=== PATIENT | female | born 1975 | race Hispanic/Latino ===

== ENCOUNTER 2019-01-11 12:28 | Emergency (ER) | payer OTHER ==
[2019-01-11] MEDS ORDERED: PROVENTIL IH ONE (12:40)
[2019-01-11] MEDS ORDERED: ATROVENT IH ONE (12:40)
[2019-01-11] MEDS ORDERED: DECADRON IV ONE (12:40)
--- NOTE | 2019-01-11 12:40 | Emergency Department Report ---
Blank Doc - Documentation Documentation: This is a 43-year-old female that presents with SOB. Stated has some tightness in her chest. Exam: diffuse wheezing/tightness This initial assessment/diagnostic orders/clinical plan/treatment(s) is/are subject to change based on patient's health status, clinical progression and re- assessment by fellow clinical providers in the ED. Further treatment and workup at subsequent clinical providers discretion. Patient/guardians urged not to elope from the ED as their condition may be serious if not clinically assessed and managed. Initial orders include: 1- Patient sent to MAIN ED for further evaluation and treatment 2- CXR 3- EKG 4- Labs 5- breathing treatment/steroids
[2019-01-11 13:02] LABS: Basophils # (Auto) 0.1 K/mm3 (0.0-0.1); Basophils % (Auto) 0.7 % (0.0-1.8); Eosinophils # (Auto) 0.1 K/mm3 (0.0-0.4); Eosinophils % (Auto) 0.9 % (0.0-4.3); Hematocrit 43.9 % (30.3-42.9); Hemoglobin 14.9 gm/dl (10.1-14.3); Lymphocytes # (Auto) 1.8 K/mm3 (1.2-5.4); Lymphocytes % (Auto) 12.8 % (13.4-35.0); Mean Corpuscular HGB Conc 34 % (30-34); Mean Corpuscular Volume 89 fl (79-97); Monocytes # (Auto) 0.4 K/mm3 (0.0-0.8); Platelet Count 345 K/mm3 (140-440); Red Blood Count 4.93 M/mm3 (3.65-5.03); Red Cell Distribution Width 14.7 % (13.2-15.2)
[2019-01-11 13:13] LABS: INR 0.8 (0.87-1.13)
[2019-01-11 13:36] LABS: BUN/Creatinine Ratio 16; Blood Urea Nitrogen 11 mg/dL (7-17); Calcium 9.5 mg/dL (8.4-10.2); Hemolysis Index 62
[2019-01-11] MEDS ORDERED: SOLU-Medrol IM ONE (13:40)
[2019-01-11] MEDS ORDERED: ROBITUSSIN AC PO ONE (13:47)
--- NOTE | 2019-01-11 14:06 | XRay Report ---
AP CHEST: HISTORY: Cough AP view of the chest demonstrates a normal mediastinal and cardiac contour with clear lungs and normal bony and soft tissue structures. IMPRESSION: Unremarkable AP chest.
--- NOTE | 2019-01-11 14:09 | Emergency Department Report ---
ED General Adult HPI - General Chief complaint: Dyspnea/Respdistress Stated complaint: NIURKA Time Seen by Provider: 01/11/19 12:38 Source: patient Mode of arrival: Wheelchair Limitations: No Limitations - History of Present Illness Initial comments: Patient presents to respond to complain of a cough and shortness of breath that started yesterday. Patient sensation difficult time catching her breath this morning due to her coughing. Patient denies tiago chest painwhen she coughs she has some chest pain but immediately goes away after cough. Patient has fever, normal pain, headache. Not sure of sick contacts. -: Sudden Severity scale (0 -10): 2 Quality: aching Consistency: intermittent Improves with: none Worsens with: none Associated Symptoms: denies other symptoms Treatments Prior to Arrival: none - Related Data Previous Rx's Medication Instructions Recorded Last Taken Type ALBUTEROL Inhaler (OR & NICU) 2 puff IH Q4HR PRN #1 inhalation 01/11/19 Unknown Rx [ProAir HFA Inhaler] Albuterol Sulfate [Albuterol 0.63% 0.63 mg IH Q4HR PRN #30 ml 01/11/19 Unknown Rx NEBS] Benzonatate [Tessalon Perles] 100 mg PO Q8HR PRN #20 capsule 01/11/19 Unknown Rx guaiFENesin/CODEINE [Robitussin AC] 5 ml PO Q12HR PRN #180 oral.liqd 01/11/19 Unknown Rx levoFLOXacin [Levaquin] 750 mg PO QDAY #5 tablet 01/11/19 Unknown Rx predniSONE [Deltasone] 20 mg PO DAILY #15 tablet 01/11/19 Unknown Rx Allergies Allergy/AdvReac Type Severity Reaction Status Date / Time every abx x rocephin and Allergy Anaphylaxis Uncoded 01/11/19 12:31 amoxicilli ED Review of Systems ROS: Stated complaint: NIURKA Other details as noted in HPI Constitutional: denies: chills, fever Eyes: denies: eye pain, eye discharge, vision change ENT: denies: ear pain, throat pain Respiratory: cough. denies: shortness of breath, wheezing Cardiovascular: denies: chest pain, palpitations Endocrine: no symptoms reported Gastrointestinal: denies: abdominal pain, nausea, diarrhea Genitourinary: denies: urgency, dysuria, discharge Musculoskeletal: denies: back pain, joint swelling, arthralgia Skin: denies: rash, lesions Neurological: denies: headache, weakness, paresthesias Psychiatric: denies: anxiety, depression Hematological/Lymphatic: denies: easy bleeding, easy bruising ED Past Medical Hx - Past Medical History Hx Psychiatric Treatment: Yes - Surgical History Hx Appendectomy: Yes Additional Surgical History: hyst - Social History Smoking Status: Current Every Day Smoker Substance Use Type: None - Medications Home Medications: Home Medications Medication Instructions Recorded Confirmed Last Taken Type ALBUTEROL Inhaler (OR & NICU) 2 puff IH Q4HR PRN #1 inhalation 01/11/19 Unknown Rx [ProAir HFA Inhaler] Albuterol Sulfate [Albuterol 0.63% 0.63 mg IH Q4HR PRN #30 ml 01/11/19 Unknown Rx NEBS] Benzonatate [Tessalon Perles] 100 mg PO Q8HR PRN #20 capsule 01/11/19 Unknown Rx guaiFENesin/CODEINE [Robitussin AC] 5 ml PO Q12HR PRN #180 oral.liqd 01/11/19 Unknown Rx levoFLOXacin [Levaquin] 750 mg PO QDAY #5 tablet 01/11/19 Unknown Rx predniSONE [Deltasone] 20 mg PO DAILY #15 tablet 01/11/19 Unknown Rx ED Physical Exam - General Limitations: No Limitations General appearance: alert, in no apparent distress - Head Head exam: Present: atraumatic, normocephalic - Eye Eye exam: Present: normal appearance - ENT ENT exam: Present: mucous membranes moist - Neck Neck exam: Present: normal inspection - Respiratory Respiratory exam: Present: normal lung sounds bilaterally, wheezes (and expiratory wheezing), rales. Absent: respiratory distress - Cardiovascular Cardiovascular Exam: Present: regular rate, normal rhythm. Absent: systolic murmur, diastolic murmur, rubs, gallop - GI/Abdominal GI/Abdominal exam: Present: soft, normal bowel sounds. Absent: distended, tenderness - Extremities Exam Extremities exam: Present: normal inspection - Back Exam Back exam: Present: normal inspection - Neurological Exam Neurological exam: Present: alert, oriented X3, CN II-XII intact. Absent: motor sensory deficit - Psychiatric Psychiatric exam: Present: normal affect, normal mood - Skin Skin exam: Present: warm, dry, intact, normal color. Absent: rash ED Course Vital Signs 01/11/19 01/11/19 01/11/19 12:38 12:41 13:12 Temperature 97.8 F Pulse Rate 99 H Pulse Rate [ 84 Anterior Throughout] Respiratory 20 Rate Respiratory 16 Rate [Anterior Throughout] Blood Pressure 99/74 O2 Sat by Pulse 88 93 Oximetry 01/11/19 01/11/19 13:19 14:04 Temperature Pulse Rate 83 Pulse Rate [ 99 H Anterior Throughout] Respiratory 22 Rate Respiratory 12 Rate [Anterior Throughout] Blood Pressure O2 Sat by Pulse 98 Oximetry ED Medical Decision Making - Lab Data Result diagrams: 01/11/19 12:50 01/11/19 12:50 Lab Results 01/11/19 01/11/19 01/11/19 Range/Units 12:50 12:50 12:50 WBC 13.9 H (4.5-11.0) K/mm3 RBC 4.93 (3.65-5.03) M/mm3 Hgb 14.9 H (10.1-14.3) gm/dl Hct 43.9 H (30.3-42.9) % MCV 89 (79-97) fl MCH 30 (28-32) pg MCHC 34 (30-34) % RDW 14.7 (13.2-15.2) % Plt Count 345 (140-440) K/mm3 Lymph % (Auto) 12.8 L (13.4-35.0) % Pitkin % (Auto) 3.0 (0.0-7.3) % Eos % (Auto) 0.9 (0.0-4.3) % Baso % (Auto) 0.7 (0.0-1.8) % Lymph # 1.8 (1.2-5.4) K/mm3 Pitkin # 0.4 (0.0-0.8) K/mm3 Eos # 0.1 (0.0-0.4) K/mm3 Baso # 0.1 (0.0-0.1) K/mm3 Seg Neutrophils % 82.6 H (40.0-70.0) % Seg Neutrophils # 11.5 H (1.8-7.7) K/mm3 PT 11.5 L (12.2-14.9) Sec. INR 0.80 L (0.87-1.13) APTT 28.0 (24.2-36.6) Sec. Sodium 142 (137-145) mmol/L Potassium 4.5 (3.6-5.0) mmol/L Chloride 104.5 (98-107) mmol/L Carbon Dioxide 24 (22-30) mmol/L Anion Gap 18 mmol/L BUN 11 (7-17) mg/dL Creatinine 0.7 (0.7-1.2) mg/dL Estimated GFR > 60 ml/min BUN/Creatinine Ratio 16 % Glucose 110 H (65-100) mg/dL Calcium 9.5 (8.4-10.2) mg/dL Total Creatine Kinase 91 (30-135) units/L CK-MB (CK-2) 4.0 (0.0-4.0) ng/mL CK-MB (CK-2) Rel Index 4.3 H (0-4) Troponin T < 0.010 (0.00-0.029) ng/mL - Radiology Data Radiology results: report reviewed - Medical Decision Making Patient states her breathing improved with the breathing treatment Critical care attestation.: If time is entered above; I have spent that time in minutes in the direct care of this critically ill patient, excluding procedure time. ED Disposition Clinical Impression: Acute bronchitis, Pneumonia Disposition: DC- TO HOME OR SELFCARE Is pt being admited?: No Does the pt Need Aspirin: No Condition: Stable Instructions: Acute Bronchitis (ED), Bacterial Pneumonia (ED) Additional Instructions: return if worse Referrals: [facility] [Other] - 3-5 Days TEREZA WALKER MD [Staff Physician] - 3-5 Days [facility] [Provider Group] - 3-5 Days [facility] [Provider Group] - 3-5 Days [facility] [Outside] - 3-5 Days Time of Disposition: 14:29
[2019-01-11 14:48] VITALS: BP 135/84
== END 2019-01-11 14:48 | disposition home or self-care (01) ==
LOC: ED 12:28
DX: J20.9 Acute bronchitis, unspecified (principal); J18.9 Pneumonia, unspecified organism; F17.200 Nicotine dependence, unspecified, uncomplicated; Z90.49 Acquired absence of other specified parts of digestive tract
CPT/HCPCS: 36415; 71045; 80048; 82550; 82553; 84484; 85025; 85610; 85730; 94640; 96372; 96374; 99284; J1100; J2930

== ENCOUNTER 2019-04-22 09:34 | Emergency (ER) | payer OTHER ==
[2019-04-22 09:47] VITALS: BP 115/71
[2019-04-22] MEDS ORDERED: DUONEB *Not for PRN Use IH ONE (10:23)
[2019-04-22] MEDS ORDERED: DECADRON IM ONE (10:24)
--- NOTE | 2019-04-22 10:35 | XRay Report ---
CHEST 2 VIEWS INDICATION / CLINICAL INFORMATION: sob. COMPARISON: None available. FINDINGS: SUPPORT DEVICES: None. HEART / MEDIASTINUM: No significant abnormality. LUNGS / PLEURA: No significant pulmonary or pleural abnormality. No pneumothorax. ADDITIONAL FINDINGS: No significant additional findings. IMPRESSION: 1. No acute findings. Signer Name: oTm Butler MD Signed: 04/22/2019 10:31 AM Workstation Name: [id number]
--- NOTE | 2019-04-22 10:37 | Emergency Department Report ---
Minor Respiratory - HPI Chief Complaint: Dyspnea/Respdistress Stated Complaint: SOB Time Seen by Provider: 04/22/19 10:14 Duration: 1 Day Pain Location: Chest Severity: moderate Minor Respiratory: Yes Able to Tolerate Fluids, Yes Cough (dry nonproductive), No Rhinorrhea, No Sore Throat, No Ear Pain, No Sick Contacts, No Hemoptysis, No Chest Pain, No Shortness of Breath, No Fever Other History: This is a 43-year-old tobacco cigarette user presents to the complaining of intermittent dry cough which led her to have his some difficulty in breathing this morning when she woke up. Patient states that 3-4 months ago she had pneumonia but was treated. Patient states that she is also been expressing some upper right-sided pain with nausea vomiting she was seen earlier spotting still she has gastritis. ED Review of Systems ROS: Stated complaint: SOB Other details as noted in HPI Comment: All other systems reviewed and negative ED Past Medical Hx - Past Medical History Hx Psychiatric Treatment: Yes - Surgical History Hx Appendectomy: Yes Additional Surgical History: hyst - Social History Smoking Status: Current Every Day Smoker Substance Use Type: None - Medications Home Medications: Home Medications Medication Instructions Recorded Confirmed Last Taken Type Albuterol Sulfate [Albuterol 0.63% 0.63 mg IH Q4HR PRN #30 ml 01/11/19 Unknown Rx NEBS] guaiFENesin/CODEINE [Robitussin AC] 5 ml PO Q12HR PRN #180 oral.liqd 01/11/19 Unknown Rx levoFLOXacin [Levaquin] 750 mg PO QDAY #5 tablet 01/11/19 Unknown Rx predniSONE [Deltasone] 20 mg PO DAILY #15 tablet 01/11/19 Unknown Rx ALBUTEROL Inhaler (OR & NICU) 2 puff IH Q4HR PRN #1 inhalation 04/22/19 Unknown Rx [ProAir HFA Inhaler] Benzonatate [Tessalon Perles] 100 mg PO Q8HR PRN #20 capsule 04/22/19 Unknown Rx Dicyclomine [Bentyl] 10 mg PO TID #20 capsule 04/22/19 Unknown Rx Ondansetron (Nf) [Zofran TAB] 8 mg PO Q8HR PRN #20 tablet 04/22/19 Unknown Rx Minor Respiratory Exam - Exam General: Vital signs noted. No distress. Alert and acting appropriately. HEENT: Yes Moist Mucous Membranes, No Pharyngeal Erythema, No Pharyngeal Exudates, No Rhinorrhea, No Conjuctival Injection, No Frontal Tenderness, No Maxillary Tenderness Ear: Neither TM Bulge, Neither TM Erythema, Neither EAC Pain, Neither EAC Discharge Neck: Yes Supple, No Adenopathy Lungs: Yes Good Air Exchange, Yes Wheezes (note wheezing bilaterally), Yes Cough, No Ronchi, No Stridor, No Labored Respirations, No Retractions, No Use of Accessory Muscles, No Other Abnormal Lung Sounds Heart: Yes Regular, No Murmur Abdomen: Yes Normal Bowel Sounds, No Tenderness, No Peritoneal Signs Skin: No Rash, No Edema Neurologic: Alert and oriented, no deficits. Musculoskeletal: Unremarkable. ED Course Vital Signs 04/22/19 09:45 Temperature 97.6 F Pulse Rate 103 H Respiratory 18 Rate Blood Pressure 115/71 O2 Sat by Pulse 93 Oximetry ED Medical Decision Making - Radiology Data Radiology results: report reviewed, image reviewed COMPARISON: None available. FINDINGS: SUPPORT DEVICES: None. HEART / MEDIASTINUM: No significant abnormality. LUNGS / PLEURA: No significant pulmonary or pleural abnormality. No pneumothorax. ADDITIONAL FINDINGS: No significant additional findings. IMPRESSION: 1. No acute findings. Signer Name: Tom Butler MD Signed: 04/22/2019 10:31 AM Workstation Name: [id number] Transcribed By: EVAN Dictated By: Tom Butler MD Electronically Authenticated By: Tom Butler MD Signed Date/Time: 04/22/19 1031 - Medical Decision Making This is a 43-year-old female presents to ED complaining of difficulty breathing that started this morning when she woke up. Patient states that he started experiencing a difficulty in breathing this morning after several bouts of intermittent coughing. Patient states that she is chronic smoker. She denies any history of asthma or bronchitis. Patient received Decadron and breathing treatment in the ED. She reports feeling better afterwards. Vital signs are normal patient is in no acute or respiratory distress. X-ray shows no acute pulmonary disease Critical care attestation.: If time is entered above; I have spent that time in minutes in the direct care of this critically ill patient, excluding procedure time. ED Disposition Clinical Impression: Bronchitis Disposition: DC-01 TO HOME OR SELFCARE Is pt being admited?: No Does the pt Need Aspirin: No Condition: Stable Instructions: Chronic Bronchitis (ED) Additional Instructions: Make sure to follow up with the primary care physician as discussed. Most likely is suffering from COPD. Smoking cessation is important Your x-ray shows no acute pulmonary infection at the moment. Take all your medications as you've been prescribed. If you have any worsening symptoms or develop new symptoms please return to ED immediately. Prescriptions: Dicyclomine [Bentyl] 10 mg PO TID #20 capsule ALBUTEROL Inhaler (OR & NICU) [ProAir HFA Inhaler] 2 puff IH Q4HR PRN #1 inhalation PRN Reason: Shortness Of Breath Benzonatate [Tessalon Perles] 100 mg PO Q8HR PRN #20 capsule PRN Reason: Cough Ondansetron (Nf) [Zofran TAB] 8 mg PO Q8HR PRN #20 tablet PRN Reason: Nausea Referrals: THAO RIGGS MD [Primary Care Provider] - 3-[address] [facility] [Provider Group] - 3-5 Days [facility] [Outside] - 3-5 Days [facility] [Outside] - 3-5 Days Forms: Accompanied Note, Work/School Release Form(ED) Time of Disposition: 11:11
== END 2019-04-22 11:25 | disposition home or self-care (01) ==
LOC: ED 09:34
DX: J40 Bronchitis, not specified as acute or chronic (principal); R11.2 Nausea with vomiting, unspecified; F17.200 Nicotine dependence, unspecified, uncomplicated; Z90.89 Acquired absence of other organs; Z90.710 Acquired absence of both cervix and uterus; Z88.8 Allergy status to other drugs, medicaments and biological substances; Z88.1 Allergy status to other antibiotic agents
CPT/HCPCS: 71046; 94644; 96372; 99283; J1100

== ENCOUNTER 2019-09-17 15:48 | Inpatient (IN) | payer MEDICAID ==
[2019-09-17 18:04] LABS: Bilirubin,Urine SM (Negative); Blood,Urine NEG (Negative); Color,Urine Amber (Yellow); Mucus,Urine 3+ /HPF
[2019-09-17 18:13] LABS: Ictotest,Urine Negative (Negative)
[2019-09-17 19:15] LABS: Hematocrit 42.4 % (30.3-42.9); Hemoglobin 14.5 gm/dl (10.1-14.3); Mean Corpuscular HGB Conc 34 % (30-34); Mean Corpuscular Volume 89 fl (79-97); Platelet Count 366 K/mm3 (140-440); Red Blood Count 4.77 M/mm3 (3.65-5.03); Red Cell Distribution Width 13.6 % (13.2-15.2)
--- NOTE | 2019-09-17 19:21 | Emergency Department Report ---
ED Abdominal Pain HPI - General Chief Complaint: Abdominal Pain Stated Complaint: POST OP/ABD PAIN/(R) SHOULDER PAIN Time Seen by Provider: 09/17/19 19:18 Source: patient Mode of arrival: Stretcher Limitations: No Limitations - History of Present Illness Initial Comments: Patient is a 44-year-old female that presents emergency room with complaints of abdominal pain. Patient states her symptoms are worsening. Patient states her abdominal pain as a 10 out of 10. Patient states she is having epigastric pain, right lower quadrant pain. Patient states the pain is radiating to her back into her shoulder. Patient states she had a gallbladder surgery 4 days ago. Patient states that her pain medication, hydrocodone is not working. MD Complaint: abdominal pain -: Sudden Location: RLQ, epigastric Radiation: other Migration to: no migration Severity: severe Severity scale (0 -10): 10 Quality: stabbing Consistency: constant Improves With: rest Worsens With: movement Context: recent surgery/procedure Associated Symptoms: denies: nausea, vomiting, diarrhea, fever, chills, constipation, dysuria, hematemesis, hematochezia, melena, hematuria, anorexia, syncope - Related Data Allergies Allergy/AdvReac Type Severity Reaction Status Date / Time amoxicillin Allergy Anaphylaxis Verified 09/17/19 19:59 azithromycin [From Zithromax] Allergy Unknown Verified 09/17/19 16:06 clindamycin Allergy Unknown Verified 09/17/19 16:06 doxycycline [From Vibramycin] Allergy Rash Verified 09/17/19 16:06 gabapentin Allergy Rash Verified 09/17/19 16:06 Iodinated Contrast Media Allergy Anaphylaxis Verified 09/17/19 20:54 latex Allergy Hives Verified 09/17/19 16:06 Penicillins Allergy Anaphylaxis Verified 09/17/19 19:59 Sulfa (Sulfonamide Allergy Hives Verified 09/17/19 16:06 Antibiotics) tramadol Allergy Rash Verified 09/17/19 16:06 ED Review of Systems ROS: Stated complaint: POST OP/ABD PAIN/(R) SHOULDER PAIN Other details as noted in HPI Constitutional: denies: chills, fever Eyes: denies: eye pain, eye discharge, vision change ENT: denies: ear pain, throat pain Respiratory: denies: cough, shortness of breath, wheezing Cardiovascular: denies: chest pain, palpitations Endocrine: no symptoms reported Gastrointestinal: abdominal pain, nausea. denies: vomiting, diarrhea Genitourinary: denies: urgency, dysuria, discharge Musculoskeletal: denies: back pain, joint swelling, arthralgia Skin: denies: rash, lesions Neurological: denies: headache, weakness, paresthesias Psychiatric: denies: anxiety, depression Hematological/Lymphatic: denies: easy bleeding, easy bruising ED Past Medical Hx - Past Medical History Previous Medical History?: Yes Hx Psychiatric Treatment: Yes (depression, anxiety) - Surgical History Past Surgical History?: Yes Hx Cholecystectomy: Yes Hx Appendectomy: Yes Additional Surgical History: hyst - Family History Family history: no significant - Social History Smoking Status: Current Every Day Smoker Substance Use Type: None ED Physical Exam - General Limitations: No Limitations General appearance: alert, in no apparent distress - Head Head exam: Present: atraumatic, normocephalic - Eye Eye exam: Present: normal appearance - ENT ENT exam: Present: mucous membranes moist - Neck Neck exam: Present: normal inspection - Respiratory Respiratory exam: Present: normal lung sounds bilaterally. Absent: respiratory distress - Cardiovascular Cardiovascular Exam: Present: regular rate, normal rhythm. Absent: systolic murmur, diastolic murmur, rubs, gallop - GI/Abdominal GI/Abdominal exam: Present: soft, tenderness (generalized tenderness.), normal bowel sounds - Rectal Rectal exam: Present: deferred - Extremities Exam Extremities exam: Present: normal inspection - Back Exam Back exam: Present: normal inspection - Neurological Exam Neurological exam: Present: alert, oriented X3 - Psychiatric Psychiatric exam: Present: normal affect, normal mood - Skin Skin exam: Present: warm, dry, normal color, other (laparoscopic surgical sites noted on abdomen.). Absent: rash ED Course Vital Signs 09/17/19 09/17/19 09/17/19 16:50 19:30 19:57 Temperature 98.2 F Pulse Rate 79 85 Respiratory 16 10 L 22 Rate Blood Pressure 131/83 Blood Pressure 111/71 [Left] O2 Sat by Pulse 94 93 Oximetry 09/17/19 09/17/19 09/17/19 20:00 20:30 21:00 Temperature Pulse Rate 92 H 89 94 H Respiratory 12 20 22 Rate Blood Pressure 131/83 136/80 124/63 Blood Pressure [Left] O2 Sat by Pulse 94 94 91 Oximetry 09/17/19 09/17/19 09/17/19 21:16 21:30 21:46 Temperature Pulse Rate 94 H 93 H 99 H Respiratory 18 18 12 Rate Blood Pressure 124/63 123/66 136/80 Blood Pressure [Left] O2 Sat by Pulse 92 91 93 Oximetry 09/17/19 22:00 Temperature Pulse Rate 115 H Respiratory 15 Rate Blood Pressure 136/80 Blood Pressure [Left] O2 Sat by Pulse 94 Oximetry - Reevaluation(s) Reevaluation #1: Patient is still complaining of ear pain. Patient states that she milligrams of Dilaudid did not even move her pain. Patient will be given another dose dose o f Dilaudid. 09/17/19 20:49 Reevaluation #2: I discussed all results patient. Patient states her pain has not improved at all. Patient given 3 mg of Dilaudid. I discussed transfer patient to patient agrees to transfer. I will try to contact the patient's surgeon at [facility] 09/17/19 21:50 Reevaluation #3: Patient is still complaining of pain. Patient is also complaining of anxiety. Patient will be given Ativan and fentanyl 09/17/19 22:26 - Consultations Consultation #1: I discussed case with Dr. Hough. Dr. Hough recommends transferring back to where she had the surgery. 09/17/19 21:48 I discussed the case again with Dr. Hough and Dr. Hough has accepted the patient to stay here once a GI consult done. 09/17/19 22:36 Consultation #2: Discussed case with the patient's surgeon, Dr. Ever Warren and he states that the hospital where he did the surgery does not have ERCP and so he cannot accept the transfer back. 09/17/19 22:32 Consultation #3: Hospitalist consult for admission. Hospitalist admit patient.. 09/17/19 22:37 ED Medical Decision Making - Lab Data Result diagrams: 09/17/19 17:52 09/17/19 17:52 - Radiology Data Radiology results: report reviewed CT ABDOMEN AND PELVIS WITHOUT CONTRAST INDICATION / CLINICAL INFORMATION: abd pain. Status post laparoscopic cholecystectomy 4 days ago. TECHNIQUE: Axial CT images were obtained through the abdomen and pelvis without IV contrast. All CT scans at this location are performed using CT dose reduction for ALARA by means of automated exposure control. COMPARISON: None available. FINDINGS: LOWER CHEST: No significant abnormality. LIVER: No significant abnormality. GALLBLADDER: Surgically absent. BILE DUCTS: No significant abnormality. PANCREAS: No significant abnormality. SPLEEN: No significant abnormality. ADRENALS: No significant abnormality. RIGHT KIDNEY and URETER: No significant abnormality. LEFT KIDNEY and URETER: Small nonobstructing stone in the lower pole. No ureteral stone or hydronephrosis. STOMACH and SMALL BOWEL: No significant abnormality. COLON: No significant abnormality. APPENDIX: Surgically absent. PERITONEUM: Small amount of free fluid around the liver tracking into the right paracolic gutter into the pelvis. This fluid has slightly increased density in the pelvis. Several tiny bubbles of gas along the anterior abdominal wall likely related to recent cholecystectomy. No abscess. LYMPH NODES: No significant adenopathy. AORTA and ARTERIES: No significant abnormality. IVC and VEINS: No significant abnormality. URINARY BLADDER: No significant abnormality. REPRODUCTIVE ORGANS: No significant abnormality. ADDITIONAL FINDINGS: None. SKELETAL SYSTEM: No significant abnormality. IMPRESSION: 1. Small amount of free fluid around the liver and in the pelvis. In the setting of recent cholecystectomy, possibility of bile leak should be considered. Clinical and laboratory correlation is recommended. - Medical Decision Making He is a 44-year-old female that presents emergency room with severe abdominal pa in. Patient had a CT done which shows a bile leak. Patient admitted to the hospitalist service. Gen. surgery and GI consulted. I try to transfer the patient back to her surgeon of record but the facility where the surgeon [facility] does not have ERCP or weighs of taking care of this problem, so the patient will stay here. Labs unremarkable except for elevated WBC and the patient given prophylactic antibiotics. Patient given multiple doses of pain medication patient has intractable pain. - Differential Diagnosis intractable pain, abdominal pain, surgical complication. Critical Care Time: Yes Critical care time in (mins) excluding proc time.: 55 Critical care attestation.: If time is entered above; I have spent that time in minutes in the direct care of this critically ill patient, excluding procedure time. Critical Care Time: 55 minutes ED Disposition Clinical Impression: Bile leak, postoperative, Intractable pain Abdominal pain Qualifiers: Abdominal location: upper abdomen, unspecified Qualified Code(s): R10.10 - Upper abdominal pain, unspecified Disposition: 09 OP ADMIT IP TO THIS HOSP Is pt being admited?: Yes Does the pt Need Aspirin: No Condition: Critical Time of Disposition: 22:34
[2019-09-17 19:41] LABS: Alanine Aminotransferase 76 units/L (7-56); Albumin 4.2 g/dL (3.9-5); BUN/Creatinine Ratio 34; Blood Urea Nitrogen 24 mg/dL (7-17); Calcium 9.8 mg/dL (8.4-10.2); Hemolysis Index 12
[2019-09-17] MEDS ORDERED: PIPERACILLIN/TAZOBACTAM 3.375 3.375 GM/50 ML BAG IV ONE (19:45)
[2019-09-17] MEDS ORDERED: SODIUM CHLORIDE 0.9% 1000 ML 1,000 ML IV ONE (19:45)
[2019-09-17] MEDS ORDERED: HYDROmorphone 2 MG/1 ML INJ IV ONE ×3 (19:45→21:49)
[2019-09-17 20:05] LABS: HCG Qualitative,Urine Negative (Negative)
--- NOTE | 2019-09-17 21:30 | Cat Scan Report ---
CT ABDOMEN AND PELVIS WITHOUT CONTRAST INDICATION / CLINICAL INFORMATION: abd pain. Status post laparoscopic cholecystectomy 4 days ago. TECHNIQUE: Axial CT images were obtained through the abdomen and pelvis without IV contrast. All CT scans at [facility] location are performed using CT dose reduction for ALARA by means of automated exposure control. COMPARISON: None available. FINDINGS: LOWER CHEST: No significant abnormality. LIVER: No significant abnormality. GALLBLADDER: Surgically absent. BILE DUCTS: No significant abnormality. PANCREAS: No significant abnormality. SPLEEN: No significant abnormality. ADRENALS: No significant abnormality. RIGHT KIDNEY and URETER: No significant abnormality. LEFT KIDNEY and URETER: Small nonobstructing stone in the lower pole. No ureteral stone or hydronephr osis. STOMACH and SMALL BOWEL: No significant abnormality. COLON: No significant abnormality. APPENDIX: Surgically absent. PERITONEUM: Small amount of free fluid around the liver tracking into the right paracolic gutter into the pelvis. This fluid has slightly increased density in the pelvis. Several tiny bubbles of gas mary ng the anterior abdominal wall likely related to recent cholecystectomy. No abscess. LYMPH NODES: No significant adenopathy. AORTA and ARTERIES: No significant abnormality. IVC and VEINS: No significant abnormality. URINARY BLADDER: No significant abnormality. REPRODUCTIVE ORGANS: No significant abnormality. ADDITIONAL FINDINGS: None. SKELETAL SYSTEM: No significant abnormality. IMPRESSION: 1. Small amount of free fluid around the liver and in the pelvis. In the setting of recent cholecyste ctomy, possibility of bile leak should be considered. Clinical and laboratory correlation is recommen ded. Signer Name: Nathan Anders MD Signed: 09/17/2019 9:26 PM Workstation Name: [email or web address]
[2019-09-17 21:33] LABS: Basophils % (Manual) 0 % (0.0-1.8); Eosinophils % (Manual) 0 % (0.0-4.3); Total Cells Counted 100
[2019-09-17 21:34] LABS: Large Platelets 1+; Platelet Estimate Consistent w Auto; RBC Morphology Normal
[2019-09-17] MEDS ORDERED: LORazepam 2 MG/ML VIAL IV ONE (22:25)
[2019-09-17] MEDS ORDERED: fentaNYL 100 MCG/2 ML INJ IV ONE (22:26)
[2019-09-18] MEDS ORDERED: ONDANSETRON 4 MG/2 ML INJ IV PRN (01:10)
[2019-09-18] MEDS ORDERED: ACETAMINOPHEN 325 MG TAB PO PRN (01:10)
[2019-09-18] MEDS: SODIUM CHLORIDE 0.9% 1000 ML 1,000 ML IV SCH ×2 (02:07→18:44)
[2019-09-18] MEDS: MORPHINE 2 MG/1 ML INJ IV PRN ×4 (02:07→15:45)
--- NOTE | 2019-09-18 03:01 | History and Physical Report ---
History of Present Illness Date of examination: 09/18/19 Date of admission: 09/17/19 23:53 Chief complaint: Abdominal pain History of present illness: 44-year-old female presenting to the emergency room today complaining of abdominal pain which has been ongoing for about 4 days. She has significant history of laparoscopic cholecystectomy about a week ago at [facility] but she started having abdominal pain few days after the procedure. She has had decreased oral intake but denies any vomiting denies any diarrhea. He denies any chest pain or shortness of breath and denies any fever or chills abdominal pain is said to be generalized and is made worse by movements. Upon evaluation here in the emergency room CT scan scan indicates bile leakage. General surgery and hog driver has been consulted. Attempts were made by the ER physician to transfer patient to where she had a surgery however the facility cannot do ERCP. Decision was made to keep patient in this facility for further possible intervention. Past History Past Medical History: other (Depression and anxiety) Past Surgical History: appendectomy, cholecystectomy, Other (Left oophorectomy) Social history: smoking (Current everyday smoker) Family history: CAD (Father had CT in the past), hypertension (History of hypertension in father) Medications and Allergies Allergies Allergy/AdvReac Type Severity Reaction Status Date / Time amoxicillin Allergy Anaphylaxis Verified 09/17/19 19:59 azithromycin [From Zithromax] Allergy Unknown Verified 09/17/19 16:06 clindamycin Allergy Unknown Verified 09/17/19 16:06 doxycycline [From Vibramycin] Allergy Rash Verified 09/17/19 16:06 gabapentin Allergy Rash Verified 09/17/19 16:06 Iodinated Contrast Media Allergy Anaphylaxis Verified 09/17/19 20:54 latex Allergy Hives Verified 09/17/19 16:06 Penicillins Allergy Anaphylaxis Verified 09/17/19 19:59 Sulfa (Sulfonamide Allergy Hives Verified 09/17/19 16:06 Antibiotics) tramadol Allergy Rash Verified 09/17/19 16:06 Home Medications Medication Instructions Recorded Confirmed Last Taken Type Ambien 10 mg PO HS 09/18/19 09/18/19 Unknown History Cymbalta 30 mg PO DAILY 09/18/19 09/18/19 Unknown History KlonoPIN 2 mg PO QHS 09/18/19 09/18/19 Unknown History Vistaril 100 mg PO DAILY 09/18/19 09/18/19 Unknown History Active Meds: Active Medications Acetaminophen (Tylenol) 650 mg PO Q4H PRN PRN Reason: Pain MILD(1-3)/Fever >100.5/SCHMITT Sodium Chloride (Nacl 0.9% 1000 Ml) 1,000 mls @ 125 mls/hr IV DIRECT MIGUEL Last Admin: 09/18/19 02:07 Dose: 125 mls/hr Documented by: Levofloxacin/Dextrose (Levaquin 750mg/150ml) 750 mg in 150 mls @ 100 mls/hr IV Q24HR MIGUEL; Protocol Morphine Sulfate (Morphine) 2 mg IV Q4H PRN PRN Reason: Pain, Moderate (4-6) Last Admin: 09/18/19 02:07 Dose: 2 mg Documented by: Ondansetron HCl (Zofran) 4 mg IV Q8H PRN PRN Reason: Nausea And Vomiting Sodium Chloride (Sodium Chloride Flush Syringe 10 Ml) 10 ml IV BID MIGUEL Sodium Chloride (Sodium Chloride Flush Syringe 10 Ml) 10 ml IV PRN PRN PRN Reason: LINE FLUSH Review of Systems Gastrointestinal: abdominal pain Exam - Constitutional Vitals: Temp Pulse Resp BP Pulse Ox 98.8 F 101 H 18 121/93 90 09/18/19 02:07 09/18/19 02:07 09/18/19 02:07 09/18/19 02:07 09/18/19 02:07 General appearance: Present: no acute distress, mild distress (Secondary to pa in) - EENT Eyes: Present: PERRL, EOM intact ENT: hearing intact, clear oral mucosa, dentition normal - Neck Neck: Present: supple, normal ROM. Absent: enlarged thyroid - Respiratory Respiratory effort: normal Respiratory: bilateral: CTA - Cardiovascular Rhythm: regular Heart Sounds: Present: S1 & S2 - Extremities Extremities: no ischemia, pulses intact, No edema Peripheral Pulses: within normal limits - Abdominal General gastrointestinal: Present: soft, tender, non-distended, normal bowel sounds Localized gastrointestinal: guarding: diffuse - Integumentary Integumentary: Present: clear, warm, dry - Musculoskeletal Musculoskeletal: strength equal bilaterally - Psychiatric Psychiatric: appropriate mood/affect, intact judgment & insight, cooperative - Neurologic Neurologic: CNII-XII intact Results - Labs CBC & Chem 7: 09/17/19 17:52 09/17/19 17:52 Labs: Abnormal lab results 09/17/19 09/17/19 09/17/19 Range/Units 17:52 17:52 17:55 WBC 18.7 H (4.5-11.0) K/mm3 Hgb 14.5 H (10.1-14.3) gm/dl Seg Neuts % (Manual) 83.0 H (40.0-70.0) % Seg Neutrophils # Man 15.5 H (1.8-7.7) K/mm3 Chloride 95.8 L (98-107) mmol/L BUN 24 H (7-17) mg/dL Glucose 110 H (65-100) mg/dL ALT 76 H (7-56) units/L Alkaline Phosphatase 164 H (35-129) units/L Ur Specific [place] 1.032 H (1.003-1.030) Assessment and Plan - Patient Problems (1) Abdominal pain Current Visit: Yes Status: Acute Qualifiers: Abdominal location: upper abdomen, unspecified Qualified Code(s): R10.10 - Upper abdominal pain, unspecified Plan to address problem: Patient is status post laparoscopic cholecystectomy. Pain has been intractable. Patient placed on analgesic medication. (2) Bile leak, postoperative Current Visit: Yes Status: Acute Plan to address problem: Gastroenterology and general surgery has been consulted for further evaluation and recommendation. (3) Leukocytosis Current Visit: Yes Status: Acute Plan to address problem: Patient placed on empiric IV antibiotics. Will monitor CBC. (4) DVT prophylaxis Current Visit: Yes Status: Acute Plan to address problem: Patient placed on sequential compression device. (5) Full code status Current Visit: Yes Status: Acute
[2019-09-18] MEDS ORDERED: PANTOPRAZOLE 40 MG INJ IV ONE (06:15)
[2019-09-18] MEDS ORDERED: NON-FORMULARY EACH (Cymbalta 30 MG) PO SCH (10:00)
[2019-09-18] MEDS ORDERED: VISTARIL PO SCH (10:00)
--- NOTE | 2019-09-18 10:00 | Gastroenterology Consultation ---
History of Present Illness - Reason for Consult Consult date: 09/18/19 abd pain, bile leak Requesting physician: PARAS CHAO III - History of Present Illness Patient is a 44 y/o female with PMH of depression/anxiety who presented to ED with c/o abdominal pain x 4 days s/p laparoscopic cholecystectomy ~1 week ago at [facility]. Upon admission, abd CT showed a possible bile leak to which GI has been consulted. Patient is previously known to our service and is followed by Dr. Holloway with undergoing an EGD on 07/26/19 for postprandial abd pain/bloating prior to undergoing CCY for biliary dyskinesia (previous HIDA with EF of 14%) that showed small hiatal hernia, mild distal esophagitis, and gastritis with erosions (bx negative for H pylori). This morning patient was resting in bed w/o acute distress but noted to be anxious. She reports continued right sided abd pain that began post cholecystectomy and has progressively became worse. Denies fever, CP, SOB, vomiting, or signs of bleeding. No hx or Fhx of liver disease or substance abuse. Past History Past Medical History: other (Depression and anxiety) Past Surgical History: appendectomy, cholecystectomy, Other (Left oophorectomy) Social history: smoking (Current everyday smoker) Family history: CAD (Father had MO in the past), hypertension (History of hypertension in father) Medications and Allergies Allergies Allergy/AdvReac Type Severity Reaction Status Date / Time amoxicillin Allergy Anaphylaxis Verified 09/17/19 19:59 azithromycin [From Zithromax] Allergy Unknown Verified 09/17/19 16:06 clindamycin Allergy Unknown Verified 09/17/19 16:06 doxycycline [From Vibramycin] Allergy Rash Verified 09/17/19 16:06 gabapentin Allergy Rash Verified 09/17/19 16:06 Iodinated Contrast Media Allergy Anaphylaxis Verified 09/17/19 20:54 latex Allergy Hives Verified 09/17/19 16:06 Penicillins Allergy Anaphylaxis Verified 09/17/19 19:59 Sulfa (Sulfonamide Allergy Hives Verified 09/17/19 16:06 Antibiotics) tramadol Allergy Rash Verified 09/17/19 16:06 Home Medications Medication Instructions Recorded Confirmed Last Taken Type Ambien 10 mg PO HS 09/18/19 09/18/19 Unknown History Cymbalta 30 mg PO DAILY 09/18/19 09/18/19 Unknown History KlonoPIN 2 mg PO QHS 09/18/19 09/18/19 Unknown History Vistaril 100 mg PO DAILY 09/18/19 09/18/19 Unknown History Active Meds: Active Medications Acetaminophen (Tylenol) 650 mg PO Q4H PRN PRN Reason: Pain MILD(1-3)/Fever >100.5/SCHMITT Clonazepam (Klonopin) 2 mg PO QHS [facility] Duloxetine HCl (Cymbalta) 30 mg PO QDAY [facility] Hydroxyzine Pamoate (Vistaril) 100 mg PO DAILY [facility] Sodium Chloride (Nacl 0.9% 1000 Ml) 1,000 mls @ 125 mls/hr IV DIRECT MIGUEL Last Admin: 09/18/19 02:07 Dose: 125 mls/hr Documented by: Levofloxacin/Dextrose (Levaquin 750mg/150ml) 750 mg in 150 mls @ 100 mls/hr IV Q24HR [facility]; Protocol Morphine Sulfate (Morphine) 2 mg IV Q4H PRN PRN Reason: Pain, Moderate (4-6) Last Admin: 09/18/19 06:20 Dose: 2 mg Documented by: Ondansetron HCl (Zofran) 4 mg IV Q8H PRN PRN Reason: Nausea And Vomiting Last Admin: 09/18/19 03:16 Dose: 4 mg Documented by: Sodium Chloride (Sodium Chloride Flush Syringe 10 Ml) 10 ml IV BID MIGUEL Sodium Chloride (Sodium Chloride Flush Syringe 10 Ml) 10 ml IV PRN PRN PRN Reason: LINE FLUSH Zolpidem Tartrate (Ambien) 10 mg PO QHS [facility] medications reviewed/updated as required Review of Systems - Review of Systems All systems: negative Gastrointestinal: abdominal pain (right sided) Exam - Constitutional Vital Signs: Temp Pulse Resp BP Pulse Ox 98.9 F 100 H 18 115/70 90 09/18/19 06:10 09/18/19 06:10 09/18/19 06:20 09/18/19 06:10 09/18/19 06:10 General appearance: no acute distress, other (anxious) - EENT Eyes: PERRL, EOM intact ENT: hearing intact - Respiratory Respiratory effort: normal Respiratory: bilateral: CTA - Cardiovascular Rhythm: other (tachycardia) - Gastrointestinal General gastrointestinal: Present: soft, tender, non-distended, normal bowel sounds - Integumentary Integumentary: Present: warm, dry - Neurologic Neurological: alert and oriented x3 - Labs CBC & Chem 7: 09/17/19 17:52 09/17/19 17:52 Lab Results: Laboratory Results - last 24 hr 09/17/19 09/17/19 09/17/19 17:52 17:52 17:55 WBC 18.7 H RBC 4.77 Hgb 14.5 H Hct 42.4 MCV 89 MCH 31 MCHC 34 RDW 13.6 Plt Count 366 [place] % (Auto) Credit Correspondence Clerk Add Manual Diff Complete Total Counted 100 Seg Neuts % (Manual) 83.0 H Band Neutrophils % 0 Lymphocytes % (Manual) 15.0 Reactive Lymphs % (Man) 0 Monocytes % (Manual) 2.0 Eosinophils % (Manual) 0 Basophils % (Manual) 0 Metamyelocytes % 0 Myelocytes % 0 Promyelocytes % 0 Blast Cells % 0 Nucleated RBC % Not Reportable Seg Neutrophils # Man 15.5 H Band Neutrophils # 0.0 Lymphocytes # (Manual) 2.8 Abs React Lymphs (Man) 0.0 Monocytes # (Manual) 0.4 Eosinophils # (Manual) 0.0 Basophils # (Manual) 0.0 Metamyelocytes # 0.0 Myelocytes # 0.0 Promyelocytes # 0.0 Blast Cells # 0.0 WBC Morphology Not Reportable Hypersegmented Neuts Not Reportable Hyposegmented Neuts Not Reportable Hypogranular Neuts Not Reportable Smudge Cells Not Reportable Toxic Granulation Not Reportable Toxic Vacuolation Not Reportable Dohle Bodies Not Reportable Pelger-Huet Anomaly Not Reportable Hal Rods Not Reportable Platelet Estimate Consistent w auto Clumped Platelets Not Reportable Plt Clumps, EDTA Not Reportable Large Platelets 1+ Giant Platelets Not Reportable Platelet Satelliting Not Reportable Plt Morphology Comment Not Reportable RBC Morphology Normal Dimorphic RBCs Not Reportable Polychromasia Not Reportable Hypochromasia Not Reportable Poikilocytosis Not Reportable Anisocytosis Not Reportable Microcytosis Not Reportable Macrocytosis Not Reportable Spherocytes Not Reportable Pappenheimer Bodies Not Reportable Sickle Cells Not Reportable Target Cells Not Reportable Tear Drop Cells Not Reportable Ovalocytes Not Reportable Helmet Cells Not Reportable Vasquez-[place] Bodies Not Reportable [place] Rings Not Reportable Heather Cells Not Reportable Bite Cells Not Reportable Crenated Cell Not Reportable Elliptocytes Not Reportable Acanthocytes (Spur) Not Reportable Rouleaux Not Reportable Hemoglobin C Crystals Not Reportable Schistocytes Not Reportable Malaria parasites Not Reportable Chad Bodies Not Reportable Hem Pathologist Commnt No Sodium 140 Potassium 4.0 Chloride 95.8 L Carbon Dioxide 22 Anion Gap 26 BUN 24 H Creatinine 0.7 Estimated GFR > 60 BUN/Creatinine Ratio 34 Glucose 110 H Calcium 9.8 Total Bilirubin 0.80 AST 34 ALT 76 H Alkaline Phosphatase 164 H Total Protein 7.8 Albumin 4.2 Albumin/Globulin Ratio 1.2 Urine Color [place] Urine Turbidity Slightly-cloudy Urine pH 5.0 Ur Specific [place] 1.032 H Urine Protein 100 mg/dl Urine Glucose (UA) Neg Urine Ketones 80 Urine Blood Neg Urine Nitrite Neg Urine Bilirubin Sm Urine Ictotest Negative Urine Urobilinogen 2.0 Ur Leukocyte Esterase Neg Urine WBC (Auto) 5.0 Urine RBC (Auto) 16.0 U Epithel Cells (Auto) 10.0 Urine Mucus 3+ Urine HCG, Qual 09/17/19 19:24 WBC RBC Hgb Hct MCV MCH MCHC RDW Plt Count [place] % (Auto) Add Manual Diff Total Counted Seg Neuts % (Manual) Band Neutrophils % Lymphocytes % (Manual) Reactive Lymphs % (Man) Monocytes % (Manual) Eosinophils % (Manual) Basophils % (Manual) Metamyelocytes % Myelocytes % Promyelocytes % Blast Cells % Nucleated RBC % Seg Neutrophils # Man Band Neutrophils # Lymphocytes # (Manual) Abs React Lymphs (Man) Monocytes # (Manual) Eosinophils # (Manual) Basophils # (Manual) Metamyelocytes # Myelocytes # Promyelocytes # Blast Cells # WBC Morphology Hypersegmented Neuts Hyposegmented Neuts Hypogranular Neuts Smudge Cells Toxic Granulation Toxic Vacuolation Dohle Bodies Pelger-Huet Anomaly Hal Rods Platelet Estimate Clumped Platelets Plt Clumps, EDTA Large Platelets Giant Platelets Platelet Satelliting Plt Morphology Comment RBC Morphology Dimorphic RBCs Polychromasia Hypochromasia Poikilocytosis Anisocytosis Microcytosis Macrocytosis Spherocytes Pappenheimer Bodies Sickle Cells Target Cells Tear Drop Cells Ovalocytes Helmet Cells Vasquez-[place] Bodies [place] Rings [place] Cells Bite Cells Crenated Cell Elliptocytes Acanthocytes (Spur) Rouleaux Hemoglobin C Crystals Schistocytes Malaria parasites Chad Bodies Hem Pathologist Commnt Sodium Potassium Chloride Carbon Dioxide Anion Gap BUN Creatinine Estimated GFR BUN/Creatinine Ratio Glucose Calcium Total Bilirubin AST ALT Alkaline Phosphatase Total Protein Albumin Albumin/Globulin Ratio Urine Color Urine Turbidity Urine pH Ur Specific [place] Urine Protein Urine Glucose (UA) Urine Ketones Urine Blood Urine Nitrite Urine Bilirubin Urine Ictotest Urine Urobilinogen Ur Leukocyte Esterase Urine WBC (Auto) Urine RBC (Auto) U Epithel Cells (Auto) Urine Mucus Urine HCG, Qual Negative Assessment and Plan 1.abdominal pain 2.possible bile leak 3.s/p cholecystectomy (~1wk ago at [facility]) -afebrile -WBC 18.7 -LFTs- T.dayami 0.80, AST 34, ALT 76, alk phos 164 -EGD 07/26/[address] Holloway showed small hiatal hernia, mild distal esophagitis, and gastritis with erosions (bx negative for H pylori) -abd CT showed small amount of free fluid around liver and pelvis suggestive of possible bile leak -surgery following with HIDA scan pending for further evaluation -will order INR now and schedule for ERCP with possible stent placement today pending above results -Keep NPO -continue antibiotics -continue supportive care -will follow
[2019-09-18] MEDS: DULoxetine 30 MG CAP PO SCH (11:09)
[2019-09-18 11:20] LABS: INR 0.98 (0.87-1.13)
--- NOTE | 2019-09-18 13:08 | Consultation ---
History of Present Illness Consult date: 09/18/19 Reason for consult: abdominal pain Chief complaint: abdominal pain - History of present illness History of present illness: 44 yo F s/p laparoscopic cholecystectomy at outside hospital 4 days ago. Pt stat es that she started having RUQ abdominal pain shooting to the right shoulder which could not be controlled with pain medications. Per ER the patient finished her entire norco RX (30 pills) in the 4 days after surgery. Pain is sharp. Does not radiate. Patient is also very anxious and tearful about missing her daughter's graduation. No f/c, cp, sob. NO n/v. The ER spoke with the patient's surgeon who stated that they did not have the capabilities to perform HIDA scan or ERCP at their facility. Past History Past Medical History: other (Depression and anxiety) Past Surgical History: appendectomy, cholecystectomy, Other (Left oophorectomy) Social history: smoking (Current everyday smoker) Family history: CAD (Father had IN in the past), hypertension (History of hypertension in father) Medications and Allergies Allergies Allergy/AdvReac Type Severity Reaction Status Date / Time amoxicillin Allergy Anaphylaxis Verified 09/17/19 19:59 azithromycin [From Zithromax] Allergy Unknown Verified 09/17/19 16:06 clindamycin Allergy Unknown Verified 09/17/19 16:06 doxycycline [From Vibramycin] Allergy Rash Verified 09/17/19 16:06 gabapentin Allergy Rash Verified 09/17/19 16:06 Iodinated Contrast Media Allergy Anaphylaxis Verified 09/17/19 20:54 latex Allergy Hives Verified 09/17/19 16:06 Penicillins Allergy Anaphylaxis Verified 09/17/19 19:59 Sulfa (Sulfonamide Allergy Hives Verified 09/17/19 16:06 Antibiotics) tramadol Allergy Rash Verified 09/17/19 16:06 Home Medications Medication Instructions Recorded Confirmed Last Taken Type Ambien 10 mg PO HS 09/18/19 09/18/19 Unknown History Cymbalta 60 mg PO DAILY 09/18/19 09/18/19 Unknown History KlonoPIN 2 mg PO QHS 09/18/19 09/18/19 Unknown History Vistaril 100 mg PO DAILY 09/18/19 09/18/19 Unknown History Active Meds: Active Medications Acetaminophen (Tylenol) 650 mg PO Q4H PRN PRN Reason: Pain MILD(1-3)/Fever >100.5/SCHMITT Clonazepam (Klonopin) 2 mg PO QHS [facility] Duloxetine HCl (Cymbalta) 30 mg PO QDAY [facility] Last Admin: 09/18/19 11:09 Dose: 30 mg Documented by: Hydroxyzine Pamoate (Vistaril) 100 mg PO DAILY [facility] Last Admin: 09/18/19 11:09 Dose: 100 mg Documented by: Sodium Chloride (Nacl 0.9% 1000 Ml) 1,000 mls @ 125 mls/hr IV DIRECT MIGUEL Last Admin: 09/18/19 02:07 Dose: 125 mls/hr Documented by: Levofloxacin/Dextrose (Levaquin 750mg/150ml) 750 mg in 150 mls @ 100 mls/hr IV Q24HR [facility]; Protocol Last Admin: 09/18/19 11:05 Dose: 100 mls/hr Documented by: Morphine Sulfate (Morphine) 2 mg IV Q4H PRN PRN Reason: Pain, Moderate (4-6) Last Admin: 09/18/19 10:58 Dose: 2 mg Documented by: Ondansetron HCl (Zofran) 4 mg IV Q8H PRN PRN Reason: Nausea And Vomiting Last Admin: 09/18/19 03:16 Dose: 4 mg Documented by: Sodium Chloride (Sodium Chloride Flush Syringe 10 Ml) 10 ml IV BID [facility]IGUEL Sodium Chloride (Sodium Chloride Flush Syringe 10 Ml) 10 ml IV PRN PRN PRN Reason: LINE FLUSH Zolpidem Tartrate (Ambien) 10 mg PO QHS [facility] Review of Systems All systems: negative (10 pt ROS performed and negative except for that listed in HPI) Exam Vital Signs Temp Pulse Resp BP Pulse Ox 98.2 F 79 16 111/71 94 09/17/19 16:50 09/17/19 16:50 09/17/19 16:50 09/17/19 16:50 09/17/19 16:50 Narrative exam: Gen: AAOx3. NAD ENT: NO scleral icterus or conjunctival pallor CV: s1, S2+ resp: even and unlabored Abd: soft, ND, incisions c/d/i Ext: no c/c/e Results - Labs 09/17/19 17:52 09/17/19 17:52 Abnormal lab results 09/17/19 09/17/19 09/17/19 Range/Units 17:52 17:52 17:55 WBC 18.7 H (4.5-11.0) K/mm3 Hgb 14.5 H (10.1-14.3) gm/dl Seg Neuts % (Manual) 83.0 H (40.0-70.0) % Seg Neutrophils # Man 15.5 H (1.8-7.7) K/mm3 Chloride 95.8 L (98-107) mmol/L BUN 24 H (7-17) mg/dL Glucose 110 H (65-100) mg/dL ALT 76 H (7-56) units/L Alkaline Phosphatase 164 H (35-129) units/L Ur Specific [place] 1.032 H (1.003-1.030) Diabetes panel 09/17/19 Range/Units 17:52 Sodium 140 (137-145) mmol/L Potassium 4.0 (3.6-5.0) mmol/L Chloride 95.8 L (98-107) mmol/L Carbon Dioxide 22 (22-30) mmol/L BUN 24 H (7-17) mg/dL Creatinine 0.7 (0.7-1.2) mg/dL Glucose 110 H (65-100) mg/dL Calcium 9.8 (8.4-10.2) mg/dL AST 34 (5-40) units/L ALT 76 H (7-56) units/L Alkaline Phosphatase 164 H (35-129) units/L Total Protein 7.8 (6.3-8.2) g/dL Albumin 4.2 (3.9-5) g/dL Calcium panel 09/17/19 Range/Units 17:52 Calcium 9.8 (8.4-10.2) mg/dL Albumin 4.2 (3.9-5) g/dL Pituitary panel 09/17/19 Range/Units 17:52 Sodium 140 (137-145) mmol/L Potassium 4.0 (3.6-5.0) mmol/L Chloride 95.8 L (98-107) mmol/L Carbon Dioxide 22 (22-30) mmol/L BUN 24 H (7-17) mg/dL Creatinine 0.7 (0.7-1.2) mg/dL Glucose 110 H (65-100) mg/dL Calcium 9.8 (8.4-10.2) mg/dL Adrenal panel 09/17/19 Range/Units 17:52 Sodium 140 (137-145) mmol/L Potassium 4.0 (3.6-5.0) mmol/L Chloride 95.8 L (98-107) mmol/L Carbon Dioxide 22 (22-30) mmol/L BUN 24 H (7-17) mg/dL Creatinine 0.7 (0.7-1.2) mg/dL Glucose 110 H (65-100) mg/dL Calcium 9.8 (8.4-10.2) mg/dL Total Bilirubin 0.80 (0.1-1.2) mg/dL AST 34 (5-40) units/L ALT 76 H (7-56) units/L Alkaline Phosphatase 164 H (35-129) units/L Total Protein 7.8 (6.3-8.2) g/dL Albumin 4.2 (3.9-5) g/dL - Imaging CT scan - abdomen: report reviewed, image reviewed CT scan - pelvis: report reviewed, image reviewed Assessment and Plan 44 yo F with abdominal pain s/p laparoscopic cholecystectomy at outside hospital Plan: 1. NPo 2. IVF 3. prn pain control 4. GI consulted and recs appreciated 5. HIDA scan pending to determine if there is a bile leak 6. repeat labs in am Thank you, please call with questions
--- NOTE | 2019-09-18 13:17 | Progress Note ---
Assessment and Plan / Abdominal pain - improved Possible bile leak? Patient is status post laparoscopic cholecystectomy. Pain has been intractable. Patient placed on analgesic medication. HIDA scan result pending / Bile leak, postoperative Gastroenterology and general surgery has been consulted for further evaluation and recommendation. wait for HIDA scan result / Leukocytosis, could be reactive Patient placed on empiric IV antibiotics. Will monitor CBC. / DVT prophylaxis Patient placed on sequential compression device. /Full code status Subjective Date of service: 09/18/19 Interval history: patient seen and examined abdominal pain slightly improved, s/p HIDA scan today Objective - Constitutional Vitals: Vital Signs - 12hr 09/18/19 09/18/19 09/18/19 01:20 02:07 04:51 Temperature 98.8 F Pulse Rate 115 H 101 H Respiratory 25 H 18 18 Rate Blood Pressure 124/66 121/93 O2 Sat by Pulse 87 90 Oximetry 09/18/19 09/18/19 09/18/19 06:10 06:20 11:30 Temperature 98.9 F 99.4 F Pulse Rate 100 H 109 H Respiratory 18 18 20 Rate Blood Pressure 115/70 125/60 O2 Sat by Pulse 90 90 Oximetry General appearance: Present: no acute distress, well-nourished - EENT Eyes: PERRL, EOM intact ENT: hearing intact, clear oral mucosa Ears: bilateral: normal - Neck Neck: supple, normal ROM - Respiratory Respiratory effort: normal Respiratory: bilateral: CTA - Cardiovascular Rhythm: regular Heart Sounds: Present: S1 & S2. Absent: gallop, rub Extremities: pulses intact, No edema, normal color, Full ROM - Gastrointestinal General gastrointestinal: Present: soft, tender (mild epigastric), non- distended, normal bowel sounds - Integumentary Integumentary: clear, warm, dry - Musculoskeletal Musculoskeletal: 1, strength equal bilaterally - Neurologic Neurologic: moves all extremities - Psychiatric Psychiatric: memory intact, appropriate mood/affect, intact judgment & insight - Labs CBC & Chem 7: 09/19/19 04:07 09/19/19 04:11 Labs: Abnormal lab results 09/17/19 09/17/19 09/17/19 Range/Units 17:52 17:52 17:55 WBC 18.7 H (4.5-11.0) K/mm3 Hgb 14.5 H (10.1-14.3) gm/dl Seg Neuts % (Manual) 83.0 H (40.0-70.0) % Seg Neutrophils # Man 15.5 H (1.8-7.7) K/mm3 Chloride 95.8 L (98-107) mmol/L BUN 24 H (7-17) mg/dL Glucose 110 H (65-100) mg/dL ALT 76 H (7-56) units/L Alkaline Phosphatase 164 H (35-129) units/L Ur Specific [place] 1.032 H (1.003-1.030) - Imaging and cardiology CT scan - abdomen: report reviewed
--- NOTE | 2019-09-18 13:54 | Nuclear Medicine Report ---
NUCLEAR MEDICINE HEPATOBILIARY SCAN INDICATION: recent cholecystectomy, poss bile leak. TECHNIQUE: Radiotracer: Tc-99m mebrofenin (by IV): 5 mCi. Gallbladder Stimulant: None. FINDINGS: Hepatic activity: Normal. Biliary activity: Normal. Small bowel activity: Normal. No abnormal pooling radiotracer identified to suggest a leak. IMPRESSION: 1. No evidence of biliary leak.. Signer Name: Timmy Hartmann MD Signed: 09/18/2019 1:49 PM Workstation Name: [id number]
[2019-09-18] MEDS ORDERED: oxyCODONE /ACETAMINOPHEN 5-325MG TAB PO PRN (16:42)
[2019-09-18] MEDS ORDERED: KLONOPIN PO SCH (22:00)
[2019-09-18] MEDS ORDERED: ZOLPIDEM 5 MG TAB PO SCH (22:00)
[2019-09-18] MEDS ORDERED: NON-FORMULARY EACH (Ambien 10 MG) PO SCH (22:00)
[2019-09-19] MEDS: MORPHINE 2 MG/1 ML INJ IV PRN ×2 (00:11→05:09)
[2019-09-19] MEDS: SODIUM CHLORIDE 0.9% 1000 ML 1,000 ML IV SCH (00:17)
[2019-09-19 05:14] VITALS: BP 129/59
[2019-09-19 05:40] LABS: Alanine Aminotransferase 33 units/L (7-56); Albumin 3.4 g/dL (3.9-5); BUN/Creatinine Ratio 23; Blood Urea Nitrogen 14 mg/dL (7-17); Calcium 8.6 mg/dL (8.4-10.2)
[2019-09-19 05:41] LABS: Hemolysis Index 3
[2019-09-19 08:29] LABS: Hematocrit 34.6 % (30.3-42.9); Hemoglobin 11.6 gm/dl (10.1-14.3)
[2019-09-19 08:32] LABS: Mean Corpuscular HGB Conc 34 % (30-34); Mean Corpuscular Volume 91 fl (79-97); Platelet Count 289 K/mm3 (140-440)
[2019-09-19 08:33] LABS: Basophils # (Auto) 0.1 K/mm3 (0.0-0.1); Eosinophils # (Auto) 0.4 K/mm3 (0.0-0.4); Eosinophils % (Auto) 4.5 % (0.0-4.3); Lymphocytes # (Auto) 2.4 K/mm3 (1.2-5.4); Lymphocytes % (Auto) 28.2 % (13.4-35.0); Monocytes # (Auto) 0.7 K/mm3 (0.0-0.8); Monocytes % (Auto) 8.3 % (0.0-7.3)
--- NOTE | 2019-09-19 09:33 | Gastroenterology Progress Note ---
Assessment and Plan 1.abdominal pain 2.possible bile leak 3.s/p cholecystectomy (~1wk ago at [facility]) -afebrile -WBC and LFTs now trended down to WNL -EGD 07/26/[address] Holloway showed small hiatal hernia, mild distal esophagitis, and gastritis with erosions (bx negative for H pylori) -abd CT showed small amount of free fluid around liver and pelvis suggestive of possible bile leak (imaging reviewed per surgery -surgery following with CT imaging reviewed- fluid as above likely post op, irrigation -HIDA scan yesterday negative for bile leak -no plan for ERCP at this time -clinically, patient is stable. Reports feeling better today with abd pain now improved. No N/V. Tolerating diet. -continue antibiotics -continue supportive care -patient okay to be d/c per GI standpoint with f/u with primary surgeon upon discharge -will sign off, please call if needed Subjective Date of service: 09/19/19 Principal diagnosis: possible bile leak Interval history: No acute distress. Reports feeling better today with abd pain improved. No N/v. Tolerating diet. Objective - Constitutional Vitals: Temp Pulse Resp BP Pulse Ox 32.1 F L 108 H 16 129/59 94 09/19/19 04:05 09/19/19 04:05 09/19/19 05:39 09/19/19 04:05 09/19/19 04:05 General appearance: no acute distress - EENT Eyes: PERRL, EOM intact ENT: hearing intact - Respiratory Respiratory effort: normal - Cardiovascular Rhythm: regular - Gastrointestinal General gastrointestinal: Present: soft, tender (slight TTP), non-distended, normal bowel sounds - Integumentary Integumentary: Present: warm, dry - Neurologic Neurological: alert and oriented x3 - Labs CBC & Chem 7: 09/19/19 04:07 09/19/19 04:11 Labs: Laboratory Results - last 24 hr 09/18/19 09/19/19 09/19/19 10:22 04:07 04:11 WBC 8.4 RBC 3.80 Hgb 11.6 Hct 34.6 D MCV 91 MCH 31 MCHC 34 RDW 14.0 Plt Count 289 Lymph % (Auto) 28.2 [place] % (Auto) 8.3 H Eos % (Auto) 4.5 H Baso % (Auto) 1.0 Lymph # 2.4 [place] # 0.7 Eos # 0.4 Baso # 0.1 Seg Neutrophils % 58.0 Seg Neutrophils # 4.9 PT 13.1 INR 0.98 Sodium 141 Potassium 3.8 Chloride 106.3 Carbon Dioxide 23 Anion Gap 16 BUN 14 Creatinine 0.6 L Estimated GFR > 60 BUN/Creatinine Ratio 23 Glucose 86 Calcium 8.6 Total Bilirubin 0.50 AST 13 ALT 33 Alkaline Phosphatase 119 Total Protein 6.4 Albumin 3.4 L Albumin/Globulin Ratio 1.1
[2019-09-19] MEDS: DULoxetine 30 MG CAP PO SCH (09:45)
--- NOTE | 2019-09-19 11:36 | Discharge Summary ---
Providers - Providers Date of Admission: 09/17/19 23:53 Date of discharge: 09/19/19 Attending physician: FUNMILAYO PINA 09/17/19 22:43 Consult to Physician [CONS] Routine Comment: Consulting Provider: ROSA TAVERA Physician Instructions: Reason For Exam: abd pain, bile leak Consult to Physician [CONS] Routine Comment: Consulting Provider: ARASH TRAN Physician Instructions: Reason For Exam: abd pain. bile leak Primary care physician: ONION TIER Hospitalization Condition: Critical Hospital course: Discharge diagnosis: / Abdominal pain - resolved, likley from constipation, symptom improved with bowel movement. / Bile leak, postoperative - ruled out with negative HIDA scan / Leukocytosis, could be reactive vs SIRS, no clear etiology, no source of infection, WBC trended down. / DVT prophylaxis Patient placed on sequential compression device. /Full code status Disposition: DC-01 TO HOME OR SELFCARE Time spent for discharge: 34 minutes Core Measure Documentation - Palliative Care Palliative Care/ Comfort Measures: Not Applicable - Core Measures Any of the following diagnoses?: none Exam - Constitutional Vitals: Temp Pulse Resp BP Pulse Ox 32.1 F L 108 H 16 129/59 94 09/19/19 04:05 09/19/19 04:05 09/19/19 05:39 09/19/19 04:05 09/19/19 04:05 Plan Activity: advance as tolerated Weight Bearing Status: Weight Bear as Tolerated Diet: low fat, low salt Follow up with: PRIMARY CAREMD [Primary Care Provider] - 7 Days
== END 2019-09-19 12:22 | disposition home or self-care (01) | DRG 392 ==
LOC: ED 15:48 → 3A 23:53
PROVIDERS: ADMIT Internal Medicine Geriatric Medicine; ATTEND Internal Medicine
DX: K59.00 Constipation, unspecified (principal); R65.10 Systemic inflammatory response syndrome (SIRS) of non-infectious origin without acute organ dysfunction; F32.9 Major depressive disorder, single episode, unspecified; F41.9 Anxiety disorder, unspecified; F17.210 Nicotine dependence, cigarettes, uncomplicated; Z88.0 Allergy status to penicillin; Z88.2 Allergy status to sulfonamides; Z88.8 Allergy status to other drugs, medicaments and biological substances; Z88.1 Allergy status to other antibiotic agents; Z91.041 Radiographic dye allergy status; Z91.040 Latex allergy status
CPT/HCPCS: 36415; 74176; 78226; 80053; 81001; 81025; 85007; 85025; 85610; 87116; 99406; G0378; A9537; C9113; J1170; J1956; J2060; J2270; J2405; J2543; J3010; J7030; Q0177